=== PATIENT | male | born 1945 | race Caucasian/White ===

== ENCOUNTER → 2017-02-08 | Outpatient (CLI) | payer MEDICARE, BC ==
[~2017-02-08] MED LIST: ASCO500C PO; ASCO500T PO; ATOR1TAB18 PO; DIAZ10TA PO; DILT-64 PO; FLUN25I EACH NARE; MSIR15 PO; OMEP20TA PO; OXYC1TAB36 PO; PROP80TA PO; TRIA.1%T TOP; VITA1000 PO; VITA500T49 PO; XARE20TA PO
[2017-02-08 13:04] LABS: AUTOMATED NEUTROPHIL # 3.8 TH/MM3 (1.8-7.7); BASOPHIL # 0.1 TH/MM3 (0-0.2); EOSINOPHIL # 0.2 TH/MM3 (0-0.4); EOSINOPHIL % 3.5 % (0.0-4.0); HEMATOCRIT 36.7 % (39.0-51.0); HEMO FLAGS DIFF FINAL; LYMPH % 24.7 % (9.0-44.0); LYMPHOCYTE # 1.5 TH/MM3 (1.0-4.8); MEAN CORPUSCULAR HEMOGLOBIN 28.9 PG (27.0-34.0); MEAN CORPUSCULAR HGB CONC 32.1 % (32.0-36.0); MONO % 6.8 % (0.0-8.0); PLATELET COUNT 155 TH/MM3 (150-450); RED BLOOD COUNT 4.07 MIL/MM3 (4.50-5.90); RED CELL DISTRIBUTION WIDTH 16.7 % (11.6-17.2); WHITE BLOOD COUNT 5.9 TH/MM3 (4.0-11.0)
[2017-02-08 13:26] LABS: BICARBONATE 31.8 MEQ/L (21.0-32.0); POTASSIUM 4.2 MEQ/L (3.5-5.1)
== END ==
LOC: PLAB 09:59
PROVIDERS: ATTEND Nuclear Medicine Nuclear Cardiology
DX: I48.91 Unspecified atrial fibrillation (principal); I49.9 Cardiac arrhythmia, unspecified
CPT/HCPCS: 36415; 80048; 85025

== ENCOUNTER → 2017-02-24 | Day surgery (SDC) | payer MEDICARE, BC ==
[~2017-02-24] MED LIST changes: +ACETAMINOPHEN 1000 MG/100 ML VIAL IV ONE; +BUPIVACAINE/EPINEPHRINE 0.25% 50 ML VIAL ONE; +LACTATED RINGER'S 1000 ML INJ 1,000 ML ONE; +LIDOCAINE 1%/EPINEPHrine 1:100,000 SOLN 20 ML VIAL ONE; +MEPERIDINE HCL 25 MG/ML VIAL ONE; +MIDAZOLAM HCL 2 MG/2 ML VIAL ONE; +PROPOFOL 200 MG/20 ML AMP IV ONE; +ceFAZolin INJ 1,000 MG VIAL ONE
--- NOTE | 2017-02-24 11:39 | TN ---
cc: COREEN BARDALES M.D. DATE OF SURGERY 02/24/2017 PREOPERATIVE DIAGNOSIS 1. Draining sinus at the umbilicus with umbilical hernia. 2. Unusual skin lesion right lower quadrant. POSTOPERATIVE DIAGNOSIS 1. Incisional umbilical hernia 2. Draining sinus possibly sebaceous cyst at the umbilicus. 3. 2 x 1-1/2 cm skin lesion right lower quadrant, somewhat irregular raised and red. POSTOPERATIVE DIAGNOSIS 1. Incisional umbilical hernia 2. Draining sinus possibly sebaceous cyst at the umbilicus. 3. 2 x 1-1/2 cm skin lesion right lower quadrant, somewhat irregular raised and red. PROCEDURE 1. A 5 x 3 cm elliptical incision excised skin lesion in the right lower quadrant. 2. Excision of skin lesion in the umbilicus possibly a sebaceous cyst chronically draining into an umbilical hernia. 3. Removal of previous suture material. 4. Primary repair of incisional umbilical hernia measuring approximately 2 cm. ANESTHESIA General SURGEON Dr. Bardales INDICATIONS This is a pleasant 71-year-old gentleman who had an intermittent draining area of the umbilicus with this umbilical hernia. He has an abnormal skin lesion. Plans were made for above. PROCEDURE The patient taken to the operating room, placed in the supine position. After anesthesia, his abdomen was prepped with Betadine and a time-out was done. He was given preoperative antibiotics. We made a linear incision above the umbilicus around a small for pore that fluid was draining out of historically. It presently is not draining. This skin pore is removed and dissected down. It looks like a sebaceous cyst. We dissect circumferentially and send this down as umbilical skin lesion. Once this was excised, the hernia sac can be seen. This was incorporated in the dissection as well. There are some adhesions of the omentum. No bowel at the umbilicus. These are all taken down with a combination of electrocautery, sharp dissection, and blunt dissection to where we get clear fascia circumferentially. There are numerous sutures that appears to be Prolene that are removed. Because of the sebaceous cyst, the history of this infection with cloudy drainage, we elected to just primary close this with interrupted Ethibond sutures in a vertical fashion. Once this was accomplished, we then closed the deep layer with 3-0 Vicryl and the skin was closed with a 4-0 Monocryl. Next, we then direct our attention to the unusual skin lesion in the right lower quadrant. An elliptical incision was made 5 x 3 cm and the skin is raised with a combination of electrocautery and sharp dissection. The specimen was sent down with a short stitch superiorly and a long stitch laterally. The deep tissue was then reapproximated with a 2-0 Vicryl and 3-0 Vicryl and the skin was closed with a 4-0 Vicryl. Of note, he has a pain pump in the right lower quadrant near the skin lesion, but it was not involved in the surgical site. Sterile bandage applied at both sites. The patient tolerated the procedure well and had no immediate postop complication. MD RAN Lauren/ZAK /11:25 AM /11:31 AM
== END | disposition home or self-care (01) ==
LOC: ESDC 08:08
PROVIDERS: ATTEND Surgery
DX: K43.2 Incisional hernia without obstruction or gangrene (principal); L98.9 Disorder of the skin and subcutaneous tissue, unspecified; L72.3 Sebaceous cyst; M79.5 Residual foreign body in soft tissue
CPT/HCPCS: 00400; 00832; 10120; 11402; 49560; 88305; 88341; 88342; J0131; J0690; J2175; J2250; J3010; J7120

== ENCOUNTER → 2017-07-05 | Outpatient (CLI) | payer MEDICARE, BC ==
[~2017-07-05] MED LIST changes: -ACETAMINOPHEN 1000 MG/100 ML VIAL IV ONE; -ATOR1TAB18 PO; +ATOR80TA45 PO; -BUPIVACAINE/EPINEPHRINE 0.25% 50 ML VIAL ONE; -DILT-64 PO; +DILT240C44 PO; -LACTATED RINGER'S 1000 ML INJ 1,000 ML ONE; -LIDOCAINE 1%/EPINEPHrine 1:100,000 SOLN 20 ML VIAL ONE; -MEPERIDINE HCL 25 MG/ML VIAL ONE; -MIDAZOLAM HCL 2 MG/2 ML VIAL ONE; +MUPI2%T TOPICAL; -OMEP20TA PO; +OMEP20TA93 PO; -PROPOFOL 200 MG/20 ML AMP IV ONE; +VITA500T35 PO; -VITA500T49 PO; +aristocort TOPICAL; -ceFAZolin INJ 1,000 MG VIAL ONE
[2017-07-05 13:03] LABS: INTERNATIONAL NORMALIZED RATIO 1.3 RATIO; PROTHROMBIN TIME - PATIENT 14.6 SEC (9.8-11.6)
[2017-07-05 16:26] LABS: BASOPHIL % 0.6 % (0.0-2.0); EOSINOPHIL # 0.1 TH/MM3 (0-0.4); EOSINOPHIL % 1.5 % (0.0-4.0); HEMATOCRIT 33.9 % (39.0-51.0); HEMO FLAGS DIFF FINAL; LYMPH % 14.9 % (9.0-44.0); MEAN CELL VOLUME 85.1 FL (80.0-100.0); MEAN CORPUSCULAR HEMOGLOBIN 26.8 PG (27.0-34.0); MEAN CORPUSCULAR HGB CONC 31.4 % (32.0-36.0); MONO % 9.7 % (0.0-8.0); NEUT % 73.3 % (16.0-70.0); PLATELET COUNT 199 TH/MM3 (150-450); RED BLOOD COUNT 3.98 MIL/MM3 (4.50-5.90); RED CELL DISTRIBUTION WIDTH 16.5 % (11.6-17.2); WHITE BLOOD COUNT 6.9 TH/MM3 (4.0-11.0)
[2017-07-05 16:55] LABS: ALT (GPT) 20 U/L (12-78); ANION GAP 8 MEQ/L (5-15); AST (GOT) 23 U/L (15-37); BICARBONATE 30.5 MEQ/L (21.0-32.0); BLOOD UREA NITROGEN 12 MG/DL (7-18); CHLORIDE 99 MEQ/L (98-107); GLOMERULAR FILTRATION RATE 65 ML/MIN (>89); GLUCOSE,FASTING 103 MG/DL (74-99); SODIUM (NA) 137 MEQ/L (136-145)
[2017-07-05 16:57] LABS: ALKALINE PHOSPHATASE 156 U/L (45-117)
== END ==
LOC: PLAB 12:06
PROVIDERS: ATTEND Family Medicine
DX: R18.8 Other ascites (principal)
CPT/HCPCS: 80053; 85025; 85610

== ENCOUNTER 2017-07-08 09:49 | Day surgery (SDC) | payer MEDICARE, BC ==
[2017-07-08 10:56] VITALS: BP 138/77; PULSE 100; RESP 18; TEMP 97.4; O2SAT 92
[2017-07-08] MEDS ORDERED: ALBUMIN HUMAN 25% 12.5GM-W/25GM FOR 37.5GM IV ONE (12:00)
[2017-07-08] MEDS ORDERED: ALBUMIN HUMAN 25% 25GM-W/12.5GM FOR 37.5GM IV ONE (12:00)
[2017-07-08 12:05] VITALS: BP 122/62; PULSE 90; RESP 20; TEMP 98.5; O2SAT 91
[2017-07-08 12:20] VITALS: BP 131/71; PULSE 90; RESP 20; O2SAT 95
--- NOTE | 2017-07-08 13:02 | RADRPT ---
EXAM DATE/TIME: 07/08/2017 10:50 [facility] COMPARISON: No previous studies available for comparison. INDICATIONS : Ascites. MEDICAL HISTORY : Hypercholesterolemia. Gastroesophageal reflux disease. Arthritis. Ulcer. Dyspnea. SURGICAL HISTORY : Right hip surgery x 2. Right knee replacement. Laminectomy. Pain pump implantation. ENCOUNTER: Initial ACUITY: 1 day PAIN SCORE: 0/10 LOCATION: Left lower quadrant FLUID: Total volume of 5,400 cc of clear, yellow fluid was removed. Fluid was sent to lab for ordered studies. Post procedure scanning reveals no hematoma or other complication. TECHNIQUE: 1. Ultrasound guidance for abdominal paracentesis. 2. Paracentesis. The risks, benefits, and alternatives to ultrasound guided paracentesis were explained to the patient in detail including the risk of bleeding and infection. Written and verbal informed consent was obt ained. With the patient on the ultrasound table, ultrasound imaging was used to select the most appropriate approach for paracentesis. Overlying skin was prepped and draped in the usual sterile fashion and wi th a local anesthetic, a dermatotomy was made with an 11 blade scalpel. A 6 Divehi [id number] ca theter was introduced into the peritoneal cavity and fluid was collected. The patient tolerated the procedure well and left the ultrasound suite in stable condition. CONCLUSION: Uncomplicated ultrasound guided paracentesis. Delvis Madison Jr., MD on July 08, 2017 at 12:59 Board Certified Radiologist. This report was verified electronically.
[2017-07-08 13:14] LABS: PERITONEAL HISTIOCYTES 13 %; PERITONEAL LYMPHS 9 %; PERITONEAL MESOTHELIAL 8 %; PERITONEAL MONOS 10 %; PERITONEAL POLYS(SEGS) 60 %
[2017-07-08 13:17] LABS: PERITONEAL WBC 1491 /MM3 (0-10)
[2017-07-12] MEDS ORDERED: TORS10TA2 PO (12:06)
== END 2017-07-08 13:30 | disposition home or self-care (01) ==
LOC: HRIP 09:49 → HRAD 09:49
PROVIDERS: ATTEND Family Medicine
DX: R18.8 Other ascites (principal); E78.00 Pure hypercholesterolemia, unspecified; K21.9 Gastro-esophageal reflux disease without esophagitis; R06.00 Dyspnea, unspecified; Z96.651 Presence of right artificial knee joint
CPT/HCPCS: 49083; 82040; 82042; 82150; 82945; 83615; 84157; 88112; 88305; 89051; 96365; C1729

== ENCOUNTER → 2017-07-22 | Outpatient (CLI) | payer MEDICARE, BC ==
[~2017-07-22] MED LIST changes: +TORS10TA2 PO
[2017-07-22 16:45] LABS: POTASSIUM 3.8 MEQ/L (3.5-5.1)
== END ==
LOC: PLAB 14:15
PROVIDERS: ATTEND Family Medicine
DX: I48.91 Unspecified atrial fibrillation (principal)
CPT/HCPCS: 36415; 80048